=== PATIENT | male | born 1950 | race Caucasian/White ===

== ENCOUNTER → 2018-02-21 | Outpatient (CLI) | payer MEDICARE ==
[2018-02-21 16:06] LABS: BASO # 0.2 (0.0-0.2); BASO % 1.6 % (0.0-2.0); EOS # 0.5 (0.0-0.7); EOS % 5.1 % (0-4.0); GRAN # 5.4 (1.4-6.5); GRAN % 57.7 % (42.2-75.2); HEMOGLOBIN 16.6 g/dl (13.5-18.0); LYMPH # 2.2 (1.2-3.4); LYMPH % 23.8 % (20.0-51.0); MEAN CELL VOLUME 98 fl (80.0-100.0); MEAN CORPUSCULAR HEMOGLOBIN 32 pg (27.0-31.0); MEAN CORPUSCULAR HGB CONC 33 g/dl (33.0-37.0); MEAN PLATELET VOLUME 9.5 fl (7.4-10.4); MONO # 1.1 (0.1-0.6); MONO % 11.5 % (1.7-9.3); PLATELET COUNT 246 K/mm3 (130-400); RED BLOOD COUNT 5.13 M/mm3 (4.20-5.60); REDCELL DISTRIBUTION WIDTH-CV 13.1 % (11.5-14.5)
[2018-02-21 16:17] LABS: ALBUMIN 4.2 gm/dL (3.5-5.0); BILIRUBIN,TOTAL 0.5 mg/dL (0.0-1.0); CALCIUM 9.7 mg/dL (8.4-10.2); CHOLESTEROL RISK RATIO 3.8; CREATININE, serum 1.01 mg/dL (0.66-1.25); POTASSIUM 4.9 mmol/L (3.4-5.0); TOTAL PROTEIN 8.2 gm/dL (6.4-8.2)
== END ==
LOC: COL.LAB 09:19
PROVIDERS: Family Medicine
DX: E78.5 Hyperlipidemia, unspecified (principal)

== ENCOUNTER → 2018-03-07 | Outpatient (CLI) | payer MEDICARE, BC | LOC: COL.RAD 08:07 | DX: Z13.6 Encounter for screening for cardiovascular disorders (principal); I77.811 Abdominal aortic ectasia; I70.0 Atherosclerosis of aorta; Z72.0 Tobacco use ==

== ENCOUNTER 2018-08-16 12:13 | Day surgery (SDC) | payer MEDICARE, BC ==
[~2018-08-16] VITALS: Ht 188 cm; Wt 103.2 kg
[2018-08-16 12:30] VITALS: BP 130/82; PULSE 80; TEMP 98
[2018-08-16] MEDS ORDERED: ASPIRIN 81M81 MG/TA2 PO (12:35)
[2018-08-16] MEDS ORDERED: PRAVACHOL 40MG40 MG PO (12:35)
[2018-08-16] MEDS ORDERED: BEVESPI AEROS10.7 GM IH (12:36)
[2018-08-16 14:10] VITALS: BP 103/69; PULSE 72
[2018-08-16 14:25] VITALS: BP 97/68; PULSE 76
[2018-08-16 14:35] VITALS: BP 99/71; PULSE 78
[2018-08-16 14:50] VITALS: BP 118/64; PULSE 69
== END 2018-08-16 15:17 | disposition home or self-care (01) ==
LOC: SDCO 12:13
DX: Z12.11 Encounter for screening for malignant neoplasm of colon (principal); D12.0 Benign neoplasm of cecum; D12.3 Benign neoplasm of transverse colon; D12.4 Benign neoplasm of descending colon; K62.1 Rectal polyp; K64.0 First degree hemorrhoids; E78.00 Pure hypercholesterolemia, unspecified; J44.9 Chronic obstructive pulmonary disease, unspecified; Z79.82 Long term (current) use of aspirin; Z79.899 Other long term (current) drug therapy
CPT/HCPCS: OP; J2250; J3010; J7030

== ENCOUNTER 2019-06-14 09:45 | Outpatient (RCR) | payer MEDICARE, BC ==
[~2019-06-14 09:45] MED LIST: ASPIRIN 81M81 MG/TA2 PO; BEVESPI AEROS10.7 GM IH; PRAVACHOL 40MG40 MG PO
== END 2019-06-20 09:17 | disposition home or self-care (01) ==
LOC: WSPT 09:45
DX: M48.061 Spinal stenosis, lumbar region without neurogenic claudication (principal); M47.818 Spondylosis without myelopathy or radiculopathy, sacral and sacrococcygeal region

== ENCOUNTER 2019-07-29 23:55 | Emergency (ER) | payer MEDICARE, BC ==
[~2019-07-29] VITALS: Ht 188 cm; Wt 106.8 kg
[2019-07-30 00:01] VITALS: TEMP 98.6
[2019-07-30 01:41] LABS: HEMATOCRIT 38.1 % (42.0-52.0); MEAN CELL VOLUME 94 fl (80.0-100.0); MEAN CORPUSCULAR HEMOGLOBIN 32 pg (27.0-31.0); MEAN CORPUSCULAR HGB CONC 34 g/dl (33.0-37.0); MEAN PLATELET VOLUME 8.8 fl (7.4-10.4); PLATELET COUNT 284 K/mm3 (130-400); RED BLOOD COUNT 4.07 M/mm3 (4.20-5.60); REDCELL DISTRIBUTION WIDTH-CV 12.4 % (11.5-14.5)
[2019-07-30 01:51] LABS: ALANINE AMINOTRANSFERASE 29 U/L (21-72); ALBUMIN 4.4 gm/dL (3.5-5.0); ALKALINE PHOSPHATASE 88 U/L (50-136); ANION GAP 12 mmol/L (7-16); AST,SGOT 42 U/L (15-37); BILIRUBIN,TOTAL 0.4 mg/dL (0.0-1.0); BLOOD UREA NITROGEN 17 mg/dL (9-20); C-REACTIVE PROTEIN 8.3 mg/dL (0.0-0.9); CALCIUM 9.1 mg/dL (8.4-10.2); CARBON DIOXIDE 23 mmol/L (22-30); CHLORIDE 94 mmol/L (98-107); CREATINE KINASE 89 U/L (55-170); CREATININE, serum 1.05 (0.66-1.25); GLUCOSE 124 mg/dL (74-106); INR 1.1 (0.8-3.0); MAGNESIUM 1.9 mg/dL (1.6-2.3); POTASSIUM 4.1 mmol/L (3.4-5.0); PROTHROMBIN TIME 12.3 SECONDS (9.7-12.8); SODIUM 129 mmol/L (137-145)
[2019-07-30 02:00] LABS: TROPONIN-I < 0.012 ng/mL (0.000-0.035)
[2019-07-30 02:17] LABS: BAND 8 % (0-10); BASOPHIL 1 % (0-2); LYMPHOCYTE 9 % (20.0-51.0); NEUTROPHILS 70 % (42.0-75.2)
[2019-07-30 03:25] LABS: COLLECTION METHOD CLEAN CATCH
[2019-07-30 03:55] LABS: MUCOUS Present /lpf; PH 5 (5-8); SQUAMOUS EPITHELIAL None Seen /hpf; URINE APPEARANCE Cloudy; URINE BACTERIA None Seen /hpf; URINE BILIRUBIN Negative (NEGATIVE); URINE BLOOD 3+ (NEGATIVE); URINE COLOR Yellow; URINE GLUCOSE Negative (NEGATIVE); URINE KETONE Negative (NEGATIVE); URINE LEUKOCYTE ESTERASE Negative (NEGATIVE); URINE NITRATE Negative (NEGATIVE); URINE PROTEIN(semi-quant) Negative (NEGATIVE); URINE RBC 20-50 /hpf; URINE UROBILINOGEN Negative (NEGATIVE)
[2019-07-30] MEDS ORDERED: DAZIDOX10 MG PO (04:37)
[2019-07-30 05:00] VITALS: BP 128/57; PULSE 97
== END 2019-07-30 05:00 | disposition short-term general hospital (02) ==
LOC: COL.ER 23:55
PROVIDERS: Emergency Medicine
DX: E87.1 Hypo-osmolality and hyponatremia (principal); M79.622 Pain in left upper arm; R94.31 Abnormal electrocardiogram [ECG] [EKG]; R31.9 Hematuria, unspecified; J44.9 Chronic obstructive pulmonary disease, unspecified; E78.5 Hyperlipidemia, unspecified; Z87.891 Personal history of nicotine dependence; Z79.82 Long term (current) use of aspirin
CPT/HCPCS: J2405; J3010; J7030

== ENCOUNTER 2023-01-29 10:21 | Inpatient (IN) | payer MEDICARE, BC ==
[~2023-01-29] VITALS: Ht 190.5 cm; Wt 101.1 kg
[~2023-01-29 10:21] MED LIST changes: +DAZIDOX10 MG PO
[2023-01-29 11:31] LABS: BASO # 0.1 K/mm3 (0.0-0.2); BASO % 1.7 % (0.0-2.0); EOS # 0.8 K/mm3 (0.0-0.7); GRAN # 5.3 K/mm3 (1.4-6.5); GRAN % 62.9 % (42.2-75.2); HEMATOCRIT 42.7 % (42.0-52.0); HEMOGLOBIN 14.7 g/dl (13.5-18.0); LYMPH # 1.3 K/mm3 (1.2-3.4); LYMPH % 15.8 % (20.0-51.0); MEAN CELL VOLUME 94 fl (80.0-100.0); MEAN CORPUSCULAR HEMOGLOBIN 32 pg (27-31); MEAN CORPUSCULAR HGB CONC 34 g/dl (33.0-37.0); MEAN PLATELET VOLUME 9.5 fl (7.4-10.4); MONO # 0.8 K/mm3 (0.1-0.6); MONO % 9.5 % (1.7-9.3); PLATELET COUNT 213 K/mm3 (130-400); RED BLOOD COUNT 4.54 M/mm3 (4.20-5.60); REDCELL DISTRIBUTION WIDTH-CV 12.8 % (11.5-14.5)
[2023-01-29 12:03] LABS: ALANINE AMINOTRANSFERASE 17 U/L (0-55); ALBUMIN 4.3 gm/dL (3.4-4.8); ALKALINE PHOSPHATASE 55 U/L (40-150); ANION GAP 10 mmol/L (7-16); AST,SGOT 21 U/L (5-34); BILIRUBIN,TOTAL 0.4 mg/dL (0.2-1.2); BLOOD UREA NITROGEN 7 mg/dL (8-26); CALCIUM 10.2 mg/dL (8.4-10.2); CARBON DIOXIDE 27 mmol/L (23-31); CHLORIDE 102 mmol/L (98-107); CREATININE, serum 0.93 mg/dL (0.72-1.25); GLUCOSE 118 mg/dL (70-99); POTASSIUM 4.1 mmol/L (3.5-4.5); SODIUM 139 mmol/L (136-145); TOTAL PROTEIN 7.7 gm/dL (6.2-8.1)
[2023-01-29 12:10] LABS: TROPONIN-I < 0.010 ng/mL (0.00-0.033)
[2023-01-29] MEDS ORDERED: CRESTOR5 MG PO (14:23)
[2023-01-29] MEDS ORDERED: LYRICA 75MG CAP75 MG PO (14:23)
[2023-01-29] MEDS ORDERED: PROAIR HFA0.09 MG/AC IH (14:26)
[2023-01-29] MEDS ORDERED: FLOMAX 0.40.4 MG/CAP PO (14:28)
--- NOTE | 2023-01-29 15:23 | NUR ---
PATIENT ADMITTED TO ROOM 353 FROM ER ACCOMPANIED BY BANANA ROOM CUTTER. PATIENT IS ALERT AND ORIENTED X4. DENIES PAIN OR SHORTNESS OF BREATH AT THIS TIME. LUNGS DIMINISHED THROUGHOUT. IV TO RIGHT FOREARM. DENIES NEEDS. ORIENTED TO ROOM. CALL LIGHT WITHIN REACH.
[2023-01-29 15:24] VITALS: BP 141/75; PULSE 65; TEMP 97.9
--- NOTE | 2023-01-29 21:20 | NUR ---
Intitial shift assessment performed. He is on 2 L O2 and doing well. Reports no SOB or pain. He is on tele in normal sinus rhythm. Peripheral IV on right forearm is patent and flushes well. Will continue abx and tx and monitor him throughout the night.
[2023-01-29 21:26] VITALS: BP 123/87; PULSE 75; TEMP 98.2
[2023-01-29 23:55] VITALS: BP 130/77; PULSE 70; TEMP 97.8
[2023-01-30 03:39] VITALS: BP 115/62; PULSE 78; TEMP 98.7
--- NOTE | 2023-01-30 05:39 | NUR ---
Had a good night. Didn't go to sleep until about 0300. He continues on 1 L of O2. No reports of SOB or pain. His IV on the Right forearm clotted and was replacd with a peripheral IV on the right hand. He continues on his tx regimen.
[2023-01-30 07:00] LABS: HEMATOCRIT 40.2 % (42.0-52.0); HEMOGLOBIN 13.9 g/dl (13.5-18.0); MEAN CELL VOLUME 95 fl (80.0-100.0); MEAN CORPUSCULAR HEMOGLOBIN 33 pg (27-31); MEAN CORPUSCULAR HGB CONC 35 g/dl (33.0-37.0); MEAN PLATELET VOLUME 10.3 fl (7.4-10.4); PLATELET COUNT 195 K/mm3 (130-400); RED BLOOD COUNT 4.24 M/mm3 (4.20-5.60); REDCELL DISTRIBUTION WIDTH-CV 12.5 % (11.5-14.5)
[2023-01-30 07:08] LABS: ALBUMIN 3.8 gm/dL (3.4-4.8); CALCIUM 9.7 mg/dL (8.4-10.2); CREATININE, serum 0.94 mg/dL (0.72-1.25); PHOSPHOROUS 2.5 mg/dL (2.3-4.7); POTASSIUM 3.9 mmol/L (3.5-4.5)
[2023-01-30 08:08] LABS: LYMPHOCYTE 10 % (20.0-51.0); NEUTROPHILS 89 % (42.0-75.2); PLATELET ESTIMATE NORMAL (NORMAL)
[2023-01-30 09:57] VITALS: BP 112/62; PULSE 79; TEMP 97.8
--- NOTE | 2023-01-30 11:30 | NUR ---
SHIFT ASSESSMENT COMPLETED AND MORNING MEDICATIONS ADMINISTERED PER ORDER. PATIENT IS ALERT AND ORIENTED X4. DENIES PAIN. LUNGS DIMINISHED IN THE BASES. ON IV ABX, TOLERATING WELL. IV TO RIGHT HAND NON-PATENT, NEW IV STARTED TO LEFT HAND/WRIST. DENIES NEEDS AT THIS TIME. FAMILY UPDATED PER REQUEST. CALL LIGHT WITHIN REACH.
[2023-01-30 12:27] VITALS: BP 129/59; PULSE 87; TEMP 98.3
--- NOTE | 2023-01-30 15:05 | NUR ---
SW met with patient to complete intake. Patient provides that he lives in [facility] alone. Next of kin is his daughter Mihaela Westfall [phone]. Patient states that does not utilize DME, is independent with ADLs, and does not utilize HH services at this time. PCP is Dr. Venegas, and pharmacy is [facility]. Patient states that he does not have anyone appointed as DPOA/HC and does not wish to appoint anyone at this time. Patient provides that he has 02 services through [facility] [facility] and would like to have a call placed to them upon dc about his concentrator due to not feeling it is working correctly. Patient plan is to return to his home upon DC. SW will continue to follow. DC plan: home
--- NOTE | 2023-01-30 16:24 | NUR ---
TELE REMOVED PER ORDER
[2023-01-30 16:35] VITALS: BP 131/63; PULSE 74; TEMP 97.7
--- NOTE | 2023-01-30 18:22 | NUR ---
PATIENT IN BED AT THIS TIME, DENIES NEEDS. CALL LIGHT WITHIN REACH. UNEVENTFUL DAY. CONTINUES ON IV ABX, TOLERATING WELL.
[2023-01-30 20:43] VITALS: BP 132/66; PULSE 78; TEMP 98.7
[2023-01-30 23:22] VITALS: BP 139/78; PULSE 65; TEMP 97.9
--- NOTE | 2023-01-31 01:14 | NUR ---
Assessment performed on patient. He has improved air movement in lower lobes. On 2 L O2. He had an occassional cough, especially after breathing treatments. Potassium was replaced on previous shift, labs to be rechecked in the AM.
--- NOTE | 2023-01-31 04:53 | NUR ---
Patient care, medication administration and nursing documentation occurred during a Daylight Savings Time Change.
[2023-01-31 04:55] VITALS: BP 117/26; PULSE 72; TEMP 98
--- NOTE | 2023-01-31 07:22 | NUR ---
Pt had a good night. He continued his plan of care without complication. SDCs used at night. He is still on 2 L O2. He is on potassium protocol and labs were drawn for a recheck this morning.
[2023-01-31 08:22] VITALS: BP 133/74; PULSE 81; TEMP 97.4
--- NOTE | 2023-01-31 10:25 | NUR ---
SHIFT ASSESSMENT COMPLETED AND MORNING MEDICATIONS ADMINISTERED PER ORDER. PATIENT IS ALERT AND ORIENTED X4. DENIES PAIN. LUNGS DIMINISHED WITH SOME WHEEZING. ON O2 AT 1-2L VIA NC. ON IV ABX, TOLERATING WELL. DENIES NEEDS. CALL LIGHT WITHIN REACH.
[2023-01-31 11:29] VITALS: BP 124/70; PULSE 72; TEMP 97.4
[2023-01-31] MEDS ORDERED: DOXYCYCLINE 10100 MG PO (12:00)
[2023-01-31] MEDS ORDERED: MEDROL 4MG DOSPA4 MG PO (12:01)
[2023-01-31] MEDS ORDERED: NEB MC (12:01)
[2023-01-31] MEDS ORDERED: IPRATROPIUM BROM3 M1 IH (12:02)
[2023-01-31] MEDS ORDERED: OXYGEN (14:12)
--- NOTE | 2023-01-31 14:20 | NUR ---
DOMITILA called and faxed [facility] the RT Exercise Oximetry and H&P to [facility] @[phone] 2:20 pm at [facility].
[2023-01-31 15:13] VITALS: BP 128/65; PULSE 73; TEMP 97.8
--- NOTE | 2023-01-31 16:09 | NUR ---
PATIENT DISCHARGED PER ORDER. 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 IV TO LEFT HAND DISCONTINUED WITH CATHETER INTACT, GAUZE DRESSING PLACED. [facility] IN ROOM AT THIS TIME SETTING UP HOME O2, THIS RN REQUESTED THEY ASSIST WITH PATIENT'S HOME CONCENTRATOR WELL PATIENT HAS STATED HE IS HAVING PROBLEMS WITH IT. DISCHARGE EDUCATION PROVIDED ON MEDICATIONS, FOLLOW UPS, AND DIAGNOSIS. PATIENT VERBALIZED UNDERSTANDING AND DENIES FURTHER QUESTIONS. CALL LIGHT WITHIN REACH.
== END 2023-01-31 16:50 | disposition home or self-care (01) | DRG 189 ==
LOC: COL.ER 10:21 → MEDICAL 12:09
PROVIDERS: Internal Medicine; Nurse Practitioner; ADMIT Student in an Organized Health Care Education/Training Program
DX: J96.01 Acute respiratory failure with hypoxia (principal); J44.1 Chronic obstructive pulmonary disease with (acute) exacerbation; E78.5 Hyperlipidemia, unspecified; G62.9 Polyneuropathy, unspecified; Z20.822 Contact with and (suspected) exposure to COVID-19; N40.0 Benign prostatic hyperplasia without lower urinary tract symptoms; Z87.891 Personal history of nicotine dependence; Z23 Encounter for immunization
CPT/HCPCS: J0696; J2920; J2930